=== PATIENT | female | born 2000 | race Caucasian/White ===

== ENCOUNTER 2022-12-17 13:00 | Outpatient (RCR) | payer BC, SELFPAY ==
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
[2022-11-30 11:20] VITALS: BP 100/72; PULSE 68; TEMP 37.2
[2022-11-30 11:24] VITALS: BMI 16.2
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
--- NOTE | 2022-12-06 12:46 | HO.PHPPROGNO ---
Subjective Subjective Date of Service: 12/06/22 Reason For Visit: anxiety Medical Problems Affecting Mental Status: No Interim History: Continues with anxious mood, although lessened. Less depressed. No SI, no safety concerns. Using p.r.n. hydroxyzine with good effect for anxiety. Medication Compliance: Yes Side effects from medications: No Attending Groups: Yes Review of Systems Acute medical concerns: No Medical Review of Systems: unchanged Review of Systems Review of Systems Yes all other systems are reviewed and are negative Constitutional: Reports no additional constitutional complaints Mental Status Exam Mental Status Exam Narrative: Well-developed, thin female, in NAD. Patient Appearance: Appropriate Patient Orientation: Person, Place, Time and Situation Level of Consciousness: Appropriate Patient Behavior: Appropriate and Cooperative Mood Description: Anxious Affect Description: Anxious Patient Cognition Impaired: No Ability to Follow Directions: Good Speech Pattern: Clear and Soft-Spoken Memory Description: Intact Hallucinations: None Delusions: Not Present Thought Process: Intact Depressive Symptoms: Increased Anxiety, Loss of Int. in Activity, Feelings of Guilt, Unhappiness, Increased Fatigue, Low Self Esteem and Loss of Energy Judgement: Fair Diagnostics Vital Signs (24Hr): BMI result Body Mass Index 16.2 Assessment & Plan Assessment & Plan (1) Generalized anxiety disorder: Status: Acute Code(s): F41.1 - Generalized anxiety disorder Assessment and Plan: Continues with anxious mood, although lessened. Less depressed. No SI, no safety concerns. Using p.r.n. hydroxyzine with good effect for anxiety. Taking duloxetine as prescribed. Medication education provided. States that she was trying to open up, share more in groups. Finding program helpful. (2) Major depressive disorder, recurrent, moderate: Status: Acute Code(s): F33.1 - Major depressive disorder, recurrent, moderate Plan 1. Continue with current [facility] plan of care. 2. Continue with current medications as prescribed. 3. Follow-up as per protocol. Patient educated on: diagnosis, medication risk/benefits and therapeutic strategies Informed Consent: understands Reason for contiued partial hosp. stay Substantial Risk for: inability to function and rapid decompensation Certification I certify that partial hospital treatment is medically necessary due to the symptoms and problems resulting from the patient's mental illness and the failure to treat the patient at the partial hospital level of care would likely result in the patient requiring inpatient psychiatric care which could not be prevented at a less intensive level of care. Total time managing care of this patient today __20__ minutes. Discharge Plan Discharge Attending provider: Thad Wagner Medications: New hydroxyzine HCl 25 mg tablet 25 mg PO TID PRN (Reason: anxiety) Qty: 30 0RF duloxetine 20 mg capsule,delayed release(DR/EC) 20 mg PO BID Qty: 60 0RF
--- NOTE | 2022-12-06 15:36 | HO.PHP ---
Clients case was reviewed and opened today in treatment team.
--- NOTE | 2022-12-07 08:51 | PC.NURSE ---
Meseret stated she has been taking Duloxetine at night and accidentally took one tab this morning. She is feeling tired and wanted to go home for the day as a result. She spoke to Alejandra Valle CNP before she left. Mamta father is coming to the program to pick her up.
--- NOTE | 2022-12-10 08:45 | PC.NURSE ---
Meseret stated she will not be in today as she has cold symptoms including a sore throat and stomach . Recommended patient see her PCP and to test for Covid to rule that out. Patient aware not to come into the program with cold sxs.
--- NOTE | 2022-12-14 09:50 | P.PNPSP_ITS ---
Subjective Subjective Date of Service: 12/14/22 Reason For Visit: anxiety Medical Problems Affecting Mental Status: No Interim History: Less anxious, no depression. No SI, no safety concerns. Looking forward to discharge today, plans to look for a job. No concerns. Medication Compliance: Yes Side effects from medications: No Attending Groups: Yes Review of Systems Acute medical concerns: No Medical Review of Systems: unchanged Review of Systems Review of Systems Yes all other systems are reviewed and are negative Constitutional: Reports no additional constitutional complaints Mental Status Exam Mental Status Exam Narrative: Well-developed, thin female, in NAD. Patient Appearance: Appropriate Patient Orientation: Person, Place, Time and Situation Level of Consciousness: Appropriate Patient Behavior: Appropriate and Cooperative Mood Description: Happy Affect Description: Appropriate Patient Cognition Impaired: No Ability to Follow Directions: Good Speech Pattern: Clear and Soft-Spoken Memory Description: Intact Hallucinations: None Delusions: Not Present Thought Process: Intact Judgement: Good Diagnostics Vital Signs (24Hr): BMI result Body Mass Index 16.2 Assessment & Plan Assessment & Plan (1) Generalized anxiety disorder: Status: Acute Code(s): F41.1 - Generalized anxiety disorder Assessment and Plan: Reports much improvement with anxiety, states she is no longer depressed. States her mood is good. Looking forward to discharge today, plans to look for a job. No SI, no safety concerns. Satisfied with current medications, states she feels they are helping her. (2) Major depressive disorder, recurrent, moderate: Status: Acute Code(s): F33.1 - Major depressive disorder, recurrent, moderate Plan 1. Patient appears stable for discharge from [facility] at this time. 2. Patient to follow-up with outpatient providers going forward. Patient educated on: diagnosis, medication risk/benefits and therapeutic strategies Informed Consent: understands Reason for contiued partial hosp. stay Substantial Risk for: stable for discharge Certification I certify that partial hospital treatment is medically necessary due to the symptoms and problems resulting from the patient's mental illness and the failure to treat the patient at the partial hospital level of care would likely result in the patient requiring inpatient psychiatric care which could not be prevented at a less intensive level of care. Total time managing care of this patient today __15__ minutes. Discharge Plan Discharge Attending provider: Thad Wagner Additional Instructions: New PCP appointment with [facility]. [address], [address]. Office # [phone], with Flor Breen on Wednesday January 11, 2023 at 12:50pm. Medications: New hydroxyzine HCl 25 mg tablet 25 mg PO TID PRN (Reason: anxiety) Qty: 30 0RF duloxetine 20 mg capsule,delayed release(DR/EC) 20 mg PO BID Qty: 60 0RF Stand Alone Forms: Patient Portal Discharge page Patient Education: Depression (DC)
== END 2022-12-17 23:59 | disposition home or self-care (01) ==
LOC: HO.PHPA 13:00
PROVIDERS: Visit Provider Psychiatry & Neurology Psychiatry
DX: F33.1 Major depressive disorder, recurrent, moderate (principal); F41.1 Generalized anxiety disorder
CPT/HCPCS: 90791; 90853